=== PATIENT | female | born 1945 | race Caucasian/White ===

== ENCOUNTER → 2018-03-17 09:07 | Outpatient (CLI) | payer MEDICARE, OTHER, SELFPAY ==
--- NOTE | 2018-03-17 | DI.MRI.S_ITS ---
PROCEDURE: MR LUMBAR SPINE WO CON INDICATIONS: LOW BACK PAIN AT MULTIPLE SITES TECHNIQUE: Noncontrast sagittal T1 spin echo and T2 fast echo, sagittal STIR, axial T1 and T2 fast spin echo through the lumbar spine. In cases with scoliosis, additional coronal T2 fast spin echo may be performed. COMPARISON: [facility] [place], CR, XR LUMBAR SPINE WITH OLBIQUES PLUS FLEXION EXTENSION, 03/07/2018, 11:01. FINDINGS: Image quality: Excellent. Alignment and Curvature: There is trace L1-L2 and L2 on L3 retrolisthesis. Convex left curvature of the thoracolumbar spine is noted which is stable compared to prior plain film radiographs. Bone Marrow: Mild reactive endplate changes noted adjacent to the L1-L2, L2-L3 and L4-L5 discs. No acute vertebral body compression fractures. Spinal Cord: Conus medullaris terminates at the L1 level. Visualized cord demonstrates normal signal and size. Paraspinous Soft Tissues: No paravertebral masses. L1-L2: Loss of disc signal and height. Mild diffuse disc bulge. Mild narrowing of the central canal. Mild bilateral neural foraminal narrowing. No neural impingement. L2-L3: Loss of disc signal and height. Mild diffuse disc bulge. Mild bilateral facet hypertrophy. Mild ligamentum flavum hypertrophy. Moderate narrowing of the central canal. Moderate bilateral neural foraminal narrowing. No neural impingement. L3-L4: Loss of disc signal. Moderate diffuse disc bulge. Mild right and moderate left facet hypertrophy. Moderate narrowing of the central canal. Moderate right and tpvkpkqt-[id number]-lrlpjl left neural foraminal narrowing with slight flattening deformity exiting left L3 nerve root. L4-L5: Loss of disc signal. Moderate, diffuse disc bulge. Small central disc protrusion. Moderate facet and moderate ligamentum flavum hypertrophy. Severe central stenosis. Moderate to severe right and severe left neural foraminal narrowing with slight flattening deformity exiting right L4 nerve root and marked flattening deformity exiting left L4 nerve root. L5-S1: Loss of disc signal. Minimal, diffuse disc bulge. Moderate right and mild left facet hypertrophy. No central stenosis. No neural foraminal narrowing. No neural impingement. IMPRESSION: 1. Multilevel degenerative disc disease. 2. Multilevel facet arthropathy. 3. Severe L4-L5 central canal stenosis. Moderate L2-L3 and L3-L4 central canal narrowing. Mild L1-L2 Central canal narrowing. 4. Moderate to severe right and severe left L4-L5 neural foraminal narrowing. Moderate right and [id number]-pb-[id number] left L3-L4 neural foraminal narrowing. Moderate bilateral L2-L3 neural foraminal narrowing. Mild bilateral L1-L2 neural foraminal narrowing. Dictated by: Kiera Gunter MD, PhD on 03/17/2018 at 12:50 Approved by: Kiera Gunter MD, PhD on 03/17/2018 at 12:58
== END ==
PROVIDERS: PCP Registered Nurse; Visit Provider Physical Medicine & Rehabilitation
DX: M54.5 Low back pain (principal); M51.36 Other intervertebral disc degeneration, lumbar region; M47.816 Spondylosis without myelopathy or radiculopathy, lumbar region; M48.061 Spinal stenosis, lumbar region without neurogenic claudication
CPT/HCPCS: 72148

== ENCOUNTER 2018-06-20 10:03 | Inpatient (IN) | payer MEDICARE, OTHER, SELFPAY ==
[2018-06-08 14:01] VITALS: BMI 23.8
[2018-06-20] VITALS (14 sets, daily range): BP systolic 94–137; BP diastolic 41–79; PULSE 61–75; RESP 10–20; TEMP 36.3–36.6; O2SAT 97–100; BMI 23.2
--- NOTE | 2018-06-20 | DI.RAD.S_ITS ---
PROCEDURE: XR LUMBAR SPINE 2-3V INDICATIONS: L4-5 TLIF TECHNIQUE: 2 views of the lumbar spine were acquired. COMPARISON: None. FINDINGS: 2 intraoperative fluoroscopy images demonstrate discectomy and posterior fusion at L5-S1. IMPRESSION: Discectomy and posterior fusion at L5-S1. Dictated by: Jordan Fuentes M.D. on 06/20/2018 at 14:45 Approved by: Jordan Fuentes M.D. on 06/20/2018 at 14:46
--- NOTE | 2018-06-20 11:30 | PM.PREOP ---
Pre-operative Note Interval Note History & Physical reviewed/Exam performed by Physician: Yes Changes to H&P: No
[2018-06-20] MEDS: LACTATED RINGERS 1,000 ML 42 ML IV ×2 (11:40→14:05)
[2018-06-20] MEDS: CEFAZOLIN 2 GM/100 ML FROZ.PIGGY IV ×2 (11:59→20:28)
--- NOTE | 2018-06-20 12:36 | SUR.OPER ---
Prone on spine table, head in foam head support, padded chest and pelvic supports, gel pad at knees, lower legs supported by pillows; nipples, genitalia and toes free of pressure, arms secured on foam padded arm boards at <90 degrees abduction. Tape over blanket at thigh secured to table.
[2018-06-20] MEDS: BUPIVACAINE LIPOSOME 266 MG/20 ML VIAL INJ (13:04)
[2018-06-20] MEDS: BUPIVACAINE 0.25% W/ EPI 50 ML VIAL 30 ML INJ (13:04)
[2018-06-20] MEDS: HYDROMORPHONE 2 MG INJ 0.5 MG IV ×4 (14:20→14:40)
--- NOTE | 2018-06-20 14:36 | PM.OP.1 ---
Operative Date/Time/Diagnoses Date of procedure: 06/20/18 Time of procedure: 11:36 Pre-op diagnosis: 1. L4-5 spinal stenosis 2. Neurogenic claudication Post-op diagnosis: same Procedure & Clinicians Procedure: 1. L4-5 Postero-lateral and posterior interbody fusion 2. L4-5 interbody cage placement. 3. L4-5 decompressive laminectomy with bilateral facetecomies 4. L4-5 Posterior non-segmental instrumentation 5. [employer] of bone marrow from iliac crest 6. Utilization of microsurgical technique and operating microscope Same procedure as scheduled: Yes Indications: Patient has been having chronic back pain and worsening lumbar radiculopathy. Patient failed multiple conservative management with worsening pain weakness and numbness in her lower extremity. Patient has been having difficulty performing activity of daily living. After discussing risks benefits of treatment options, patient elected proceed with surgery. Surgeon: Shital Joy Brand Ambassador: Amina Ibarra Click Yes if Unassisted: No Anesthesia Type: General Operative Notes Closure Type: primary Prosthetic devices, grafts, tissues, transplants, or devices: Globus revolve screws, Rise cage Estimated Blood Loss (mL): 50 Blood products transfused: none Procedure in detail: Patient was seen in the preoperative area. Risks and benefits of the surgery was discussed with the patient. Informed consent was obtained from the patient and placed in the chart. Surgical site was marked. Patient was taken to the operative room. General anesthesia was administered. Prophylactic antibiotic was given to the patient less than 30 min before the incision was made. Patient was placed into a prone position on the Adin table. Patient's back was then prepped and draped in the sterile fashion. Time-out was performed at this time. Using AP and lateral C-arm imaging the interval between L4-5 was identified and marked on patient's back. A 2 inch incision 2 in from midline was made on the right side first. The fascia was incised in line with skin incision. Globus MARS retractors was placed inside the incision and docked onto the L4 lamina. Using microsurgical technique and operating microscope, a L4 laminectomy and L4-5 facetectomy was performed using a Kerrison rongeur. patient was found have severe central stenosis as well as bilateral neural foramen stenosis. Total facetectomy was performed in order to fully decompress patient's neurologic structures which rendered the L4-5 level unstable and warranted a fusion surgery. The disc space at L4-5 was identified. And a total diskectomy was performed at L4-5 level. The endplates were decorticated using a rasp and shaver. The total diskectomy and decortication was performed at L4-5 level in order to to accomplish a L4-5 fusion. The local bone from the laminectomy and facetectomy was saved for local bone grafting. After the total diskectomy and decortication was completed, Bio4 bone graft material was combined with local bone that was harvested earlier. At this time, a separate skin is incision was made over the iliac crest. A Jamshidi needle was inserted into the iliac crest through a separate skin incision. 5 cc of bone marrow aspiration was obtained through the separate skin incision using a Jamshidi needle from the iliac crest. The bone marrow aspiration was combined with local bone and the Bio4 bone grafting material. The bone grafting material was placed into the L4-5 interbody space along with a expandable cage. The cage was expanded to its maximum height using the torque limiting screwdriver. At this time a mirror image incision was made on the left side. The fascia was incised in line with the skin incision. Globus MARS retractor was inserted and docked onto the L4-5 posterolateral gutter. Using the power drill, posterior-lateral decortication was performed at L4-5 level until bleeding cortical bone was identified. The remaining bone grafting material was placed into the L4-5 posterior lateral gutter he order to accomplish posterolateral fusion at the L4-5 level. Using the double C-arm technique, pedicle screws were placed into the L4-5 pedicles bilaterally. This was done by placing the Jamshidi needle into the pedicles, then placing the guidewires over the Jamshidi needle, and finally placing the cannulated screws over the guidewires bilaterally. After the pedicle screws were placed, 2 titanium rods was locked into the heads of the pedicle screws using locking caps and torque limiting screwdriver. After all the hardware was placed, and confirmed with AP and lateral C-arm imaging, the wound was then irrigated with sterile normal saline and packed with Ray-Donald gauze for 3 min to accomplish hemostasis. After the gauze was removed the deep fascia was closed with #1 Vicryl suture. The subcutaneous layer was closed with 2-0 Vicryl. The skin was closed with skin elinor. Patient tolerated the procedure well. There were no complications. Complications: none Condition: stable Disposition: PACU Plan for aftercare: Admit to inpatient hospital
[2018-06-20] MEDS: hydrOXYzine 50 MG/ML INJ IM (14:45)
[2018-06-20] MEDS: SODIUM CHLORIDE 0.9% 1,000 ML 100 ML IV (16:14)
--- NOTE | 2018-06-20 16:51 | PC.NURSE ---
Fina shift note: Patient admitted to room 228 from PACU at 1540 S/P scheduled TLIF by Dr. CULP. Awake, alert, and oriented. VSS. No c/o pain on arrival or nausea. Al at bedside providing supportive care. Oriented to room, environment, and plan of care.
[2018-06-20] MEDS: HYDROMORPHONE 1 MG INJ 0.5 MG IV (17:47)
[2018-06-20] MEDS: DOCUSATE 100 MG CAPSULE PO (20:27)
[2018-06-20] MEDS: LOVASTATIN 20 MG TABLET 40 MG PO (20:27)
[2018-06-20] MEDS: SENNOSIDES 8.6 MG TABLET 17.2 MG PO (20:28)
[2018-06-20] MEDS: OXYCODONE IR 5 MG TABLET 10 MG PO (20:30)
[2018-06-20] MEDS: hydrOXYzine pamoate 25 MG CAPSULE PO (20:35)
[2018-06-21 00:10] VITALS: BP 121/68; PULSE 78; RESP 16; TEMP 36.6; O2SAT 99
[2018-06-21] MEDS: OXYCODONE IR 5 MG TABLET 10 MG PO ×4 (00:33→12:49)
[2018-06-21] MEDS: CEFAZOLIN 2 GM/100 ML FROZ.PIGGY IV (03:53)
[2018-06-21] MEDS: SODIUM CHLORIDE 0.9% 1,000 ML 100 ML IV (03:53)
[2018-06-21 04:10] VITALS: BP 100/57; PULSE 64; RESP 15; TEMP 36.5; O2SAT 99
[2018-06-21 05:44] LABS: Hematocrit 36.4 % (36-46); Hemoglobin 12.8 g/dL (12.0-16.0)
[2018-06-21 08:00] VITALS: BP 104/63; PULSE 73; RESP 18; TEMP 37.1; O2SAT 95
--- NOTE | 2018-06-21 08:56 | CM.DANOTE ---
DCP: Case received, EMR reviewed and met with patient. Introduced self and role. DCP template completed with information currently available. Patient is a 72 year old female who admitted yesterday morning to the care of the surgical team. PCP: Dr. Orona. Payer: confirmed: Medicare/[employer]. Patient came to hospital for L4-5 Laminectomy. Patient has had history of chronic bilateral low back pain. Met with her in her room. She was up in her chair having breakfast. Alert and oriented. She lives in [place] with her , Al. She will be working with physical therapy today. She has been independent at home. P: DCP to continue to follow. Anticipate her going home when medically stable, as well as cleared by physical therapy. Leilani Hutchinson RN/Environmental Communications Specialist
[2018-06-21] MEDS: CHOLECALCIFEROL (VITAMIN D3) 1,000 UNIT TABLET 2000 UNIT PO (09:12)
[2018-06-21] MEDS: DOCUSATE 100 MG CAPSULE PO (09:12)
--- NOTE | 2018-06-21 09:29 | PM.DS.1 ---
History of Present Illness Date Patient Seen: 06/21/18 Time Patient Seen: 09:30 Chief complaint: [id number] Narrative: Hospital day 2 postop day 1 following L4-5 TLIF, cage, posterior screw fixation. patient has remained stable postoperatively. She states her preoperative leg symptoms have resolved. Having primarily low back pain. has been taking oxycodone for pain. patient is interested in going home today with her to take care of her. She has not had physical therapy yet. Discharge Providers Date of admission: 06/20/18 10:03 Discharge Date: 06/21/18 Primary care physician: TEE Dean Consults: 06/20/18 15:35 Consult to Occupational Therapy Evaluate & Treat Comment: Physician Instructions: Evaluate and treat Consult to Physical Therapy Evaluate & Treat Comment: Physician Instructions: Evaluate and Treat Discharge provider: Lan Quintana PA-C Summary Discharge Diagnosis: Status post L4-5 TLIF, cage, posterior screw fixation Hospital Course: Patient brought to hospital on 06/20/2018 for above noted surgery. She remained stable postoperatively. She progressed with physical therapy. Ready to go home on postop day 1. Status at Discharge Cognitive/behavioral status at discharge: oriented Functional status at discharge: uses cane/walker Overall status at discharge: patient is progressing back to baseline Time Spent with Patient Less than 30 minutes Exam Vital Signs (past 8 hours): - 06/21/18 04:10 06/21/18 08:00 Temperature 97.7 F 98.8 F Pulse Rate 64 73 Respiratory Rate 15 18 Blood Pressure 100/57 L 104/63 Pulse Oximetry 99 95 Oxygen Delivery Method Nasal Cannula Oxygen Flow Rate 2 Narrative Exam Narrative: Alert, oriented no acute distress sitting in chair. Back. Dressing is dry without drainage or inflammation. Legs. No calf pain or swelling. Pulses symmetrical. Good sensation to touch to lower legs. Good strength on foot dorsiflexion plantar flexion. she is able to full extension from sitting position bilateral. Objective Labs Result Diagrams: 06/21/18 05:08 Labs: Laboratory Results - last 24 hr 06/21/18 05:08 Hgb 12.8 Hct 36.4 Discharge Plan Discharge Plan Patient Disposition: Home Discharge comment: Discharge to home today pending clearance by PT. Patient to avoid excessive bending or twisting of lumbar spine. no lifting or carrying more than 5-10 lb. No sitting for more than an hour to time. Discharge Med Rec/Prescriptions Prescriptions: New oxycodone 5 mg Tablet 10 mg PO Q3HR PRN (Reason: Pain, Severe (7-10)) Qty: 30 RF: 0 hydroxyzine pamoate 25 mg Capsule 25 mg PO Q4HR PRN (Reason: Nausea And Vomiting) Qty: 20 RF: 0 Continued cyclobenzaprine 10 mg Tablet 10 mg PO DAILY PRN (Reason: Muscle Spasm) RF: 0 lovastatin 40 mg Tablet 40 mg PO QPM RF: 0 alprazolam 0.5 mg Tablet 0.5 - 2 mg PO BEDTIME PRN (Reason: Insomnia) RF: 0 famotidine 20 mg Tablet 20 mg PO DAILY PRN (Reason: Heartburn) RF: 0 estradiol 0.01 % (0.1 mg/gram) Cream 1 g VAGINAL 2XW RF: 0 omeprazole 20 mg Tablet,Delayed Release (Dr/Ec) 20 mg PO DAILY PRN (Reason: gerd) RF: 0 cholecalciferol (vitamin D3) [Vitamin D3] 2,000 unit Capsule 2,000 unit PO DAILY RF: 0 acetaminophen [Tylenol Arthritis Pain] 650 mg Tablet Extended Release 1,300 mg PO BID RF: 0 Discontinued meloxicam 15 mg Tablet 15 mg PO DAILY PRN (Reason: pain) RF: 0 Follow up/Referrals: Domonique Orona ARNP [Primary Care Provider] - Provider Discharge Instructions Diet: Diet as Tolerated Activity: Ambulate as tolerated. Use walker as needed. avoid sitting for more than 1 hour to time. no excessive bending or twisting of lumbar spine. no lifting or carrying more than 5-10 lb. Cold/Heat Therapy: Cold pack to lumbar spine as needed. Skin/Wound/Dressing Care Report to your healthcare provider any signs of infection, such as:: chills, fever, night sweats, increased pain, unusual drainage and unusual redness Dressing: Keep CovRsite dressing in place until postop visit. Visit Report/Discharge Packet Instructions: DI for Transforaminal Lumbar Interbody Fusion Discharge Data Primary Care Provider: Domonique Orona Attending Provider: Shital Joy Admit Date/Time: 06/20/18 10:03
--- NOTE | 2018-06-21 11:32 | PC.NURSE ---
Addendum entered by Sudha Ko R.N. 06/21/18 14:02: DC - after lunch, given 10mg po oxycodone and 25mg po vistaril for discomfort back 6 on scale 0/10, saline lock dc'd, OT had dressed, dc instructions reviewed, belongings gathered, including glasses, cell phone, tablet, clothing, tsf to wc and escorted to spouse's car. Original Note: Addendum entered by Sudha Ko R.N. 06/21/18 12:00: after working with occup therapy, dsg removed, parallel stapled incisions w/o redness or drainage, replaced with coversite dsg. Original Note: Addendum entered by Sudha Ko R.N. 06/21/18 11:55: Original Note: AM NOTE - pt up to chair x 1 person w/fww for breakfast, states pain back 3-4 on scale 0/10, no nausea, does have hx sciatica and continues with some nerve discomfort lle, states has improved post op, given 10mg oxycodone for phys therapy, ivf saline lock, plan for pt to dc later after lunch if clarita phys therapy, per pt did well, pain 2 on scale 0/10 after mobilization, ret to bed to rest, spouse arrived and given scripts for oxycodone and hydroxyzine to fill, pt states would like to go home after lunch.
--- NOTE | 2018-06-21 12:12 | OT.IP.EVAL ---
Current Diagnoses Other spondylosis with radiculopathy, lumbar region (06/20/18) Spinal stenosis, lumbar region with neurogenic claudication (06/20/18) Surgery Performed Operation Date: 06/20/18 12:15 Actual Procedures p L4-5 TLIF - Shital Joy MD Past Medical History (Last Reviewed 06/20/18 @ 15:09 by Charlette Fox, RN) Arthritis (Acute) Depression (Acute) GERD (gastroesophageal reflux disease) (Acute) Hyperlipidemia (Acute) Pre-diabetes (Acute) Sciatica (Acute) Skin abnormality (Acute) Tingling (Acute) UTI (urinary tract infection) (Acute) Vitamin D deficiency (Acute) Surgical History (Last Reviewed 06/20/18 @ 15:09 by Charlette Fox RN) History of colonoscopy (Acute 09/15/07) Hx of bilateral cataract extraction (Acute ~06/2017) Occupational Therapy Inpatient Evaluation/Re-Eval M1 PT/OT-IP Prior Functional Status Start: 06/21/18 16:50 Freq: NEEDED Status: Active Protocol: Document 06/21/18 12:12 PJVanesa (Rec: 06/21/18 17:02 PJ [id number]) Medical Review Prior Functional Status Medical History Reviewed Yes Diet/Fluid Consistency Regular Communication WNL Mobility and Gait Pt reports she ambulated without use of AD. Activities of Daily Living and IADL's Independent without use of AD. Prior Functional Level (Other details) Pt reports she was independent with all daily and recreational activities, no use of AD. Pt is a retired physician. Social History Household Members spouse Living Arrangements House Number of Floors (Floors) Two Floors Number of Stairs To Enter/Railing? Split level home with 1 TANNER home with no rail. 3 steps to 2nd floor of home with R handrail. Home Environment High Toilet Tub/Shower Home Equipment Front Wheel Walker Employment Status Retired Additional Social History Comment Pt's will be available to assist her at home. M2 OT-IP Current Condition Start: 06/21/18 16:50 Freq: Status: Active Protocol: Document 06/21/18 12:12 PJVanesa (Rec: 06/21/18 17:02 JACKY [id number]) Occupational Therapy Current Condition Current Condition Evaluation Date 06/21/18 Treatment Diagnosis decreased self care, functional mobility s/p L4-5 lami,fusion Diagnosis Onset Date 06/20/18 Post Operative Precautions Lumbar Precautions Log Roll No Twisting Limit Bending Lifting Restriction of 10 lbs Gait Belt above Incisional Area M3 OT- IP Subjective and Pain Start: 06/21/18 16:50 Freq: Status: Active Protocol: Document 06/21/18 12:12 PJM (Rec: 06/21/18 17:02 PJ [id number]) OT- Subjective Occupational Therapy Visit Type Type Initial Evaluation Visit Start Time 11:22 Visit Stop Time 12:12 Total Visit Minutes 50 Notes Pt's here for education this session. Occupational Therapy Visit Comments Patient/Caregiver Goals to go home today, be able to resume [email or web address] arts classes and take walks OT Pain Assessment Pain When Pain Assessed After Treatment Pain Present Pain Present Pain Reported Location Lower Back Intensity 4 Scale Used Numeric (1 - 10) Description Aching Acute Pain Behaviors Guarding Management Techniques Distraction Re-positioning Timing of Activity with Medications M4 OT- IP ADL's Start: 06/21/18 16:50 Freq: Status: Active Protocol: Document 06/21/18 12:12 PJM (Rec: 06/21/18 17:02 [facility] [id number]) OT CYY-Ilty-Onjcjot General Evaluation Self-Feeding Ability Independent OT ADL-Grooming General Evaluation Grooming Ability Independent Comments OT Grooming Comments provided education re: body mechanics OT ADL-Oral Care General Eval Oral Care Ability Independent Comments Oral Care Comments standing at sink 4 min total OT ADL-Dressing General Eval Upper Body Dressing Ability Independent Lower Body Dressing Ability Minimal Assistance Areas Needing Assistance Pull-Over Shirt Underpants/Brief Pants/Shorts Socks Shoes Assistive Devices Dressing Assistive Devices Long Handled Shoe Horn Residential Property Manager Comments OT Dressing Comments Pt declines sock aid. to assist with socks until pt able. Gave catalog and ordering info for pt to obtain global commodity manager. has long shoe horn pt can use. OT ADL-Toileting General Evaluation Toileting Ability Independent Areas Needing Assistance Manage Clothing Perform Perineal Hygiene OT ADL-Bathing Comments OT Bathing Comments provided education re: body mechanics, pt to order long bath sponge from catalog M5 OT- IP IADL's Start: 06/21/18 16:50 Freq: Status: Active Protocol: Document 06/21/18 12:12 PJM (Rec: 06/21/18 17:02 PJ [id number]) OT-Instrumental Activities of Daily Living Deficits IADL Deficits Identified Deficits Home Safety Awareness Awareness of Need for Assistance at Home Good Awareness Ability to Problem Solve Emergency Able to Problem Solve Situations Medication Management Medication Management No Deficits Identified Money Management Money Management No Deficits Identified Meal Preparation Meal Preparation Caregiver Provides Assist Meal Preparation Comments to assist until pt able Day Care Home Mother Day Care Home Mother Caregiver Provides Assist Day Care Home Mother Comments to assist until pt able Driving Driving Caregiver Provides Assist Driving Comments to assist until pt able M6 OT- IP Functional Cognition Start: 06/21/18 16:50 Freq: Status: Active Protocol: Document 06/21/18 12:12 PJ (Rec: 06/21/18 17:02 [facility] [id number]) Cognitive Factors Limiting Selfcare Function Cognitive Ability Level of Alertness Alert Patient Orientation Name Age Birthday Month Date Year Day of Week Place Situation Attention Span Ability Capable of Focused Attention Capable of Sustained Attention Ability to Follow Commands Able to Follow One Step Commands Able to Follow Multi-Step Commands Memory Description No Deficits Noted Safety Awareness No Deficits Noted Problem Solving Ability No deficits Noted Cognitive Comments Cognitive Assessment Comments Pt verbalizes/demonstrates understanding of 3/3 lumbar spine precautions. OT- Vision and Hearing OT- Hearing Assessment OT- Hearing Assessment WFL OT- Vision Assessment Visual Acuity WFL Glasses All The Time M7 OT- IP Mobility and Balance Start: 06/21/18 16:50 Freq: Status: Active Protocol: Document 06/21/18 12:12 PJM (Rec: 06/21/18 17:02 [facility] [id number]) OT- Bed Mobility Assessment Rolling Type of Rolling Roll to Right Level of Assistance Independent Supine to Sit Supine to Sit Assist Independent Scooting Scooting to Edge of Bed Independent OT-Transfer Assessment Sit to and From Stand Sit to and from Stand Independent Transfers Transfer Ability Independent Technique Transfer Destination Car Chair Toilet Transfer Technique Stand Step Pivot Devices Transfer Assistive Devices Front Wheeled Walker Comments Mobility Comments provided education re: technique for car transfers and pt/ verbalize understanding OT- Gait Assessment Gait Gait Assistance Required: Independent Distance (Feet) 30 Assistive Devices Assistive Device Front Wheeled Walker OT- Balance Assessment Sitting Balance and Reactions Static Sitting Balance Ability Good Dynamic Sitting Balance Ability Good Standing Balance and Reactions Static Standing Balance Ability Good Dynamic Standing Balance Ability Good M8 OT- IP Objective Assessments Start: 06/21/18 16:50 Freq: Status: Active Protocol: Document 06/21/18 12:12 PJM (Rec: 06/21/18 17:02 PJ [id number]) OT Gross Range of Motion Upper Extremity Range of Motion Assessment Within Functional Limits OT Strength Upper Extremity Strength Assessment Within Functional Limits OT- Coordination Assessment Comments Coordination Comments BUE WNL OT-Muscle Tone Assessment Muscle Tone WNL Yes OT Sensation Assessment Comments Summary Comments WNL BUE per pt Edema Edema Absent M9 OT- IP Assessment and Plan Start: 06/21/18 16:50 Freq: Status: Active Protocol: Document 06/21/18 12:12 PJM (Rec: 06/21/18 17:02 PJ [id number]) OT Summary Assessment and Plan Potential Rehabilitation Potential Excellent Analytic Complexity at Evaluation Low Summary Progress Towards Goals Safe For Discharge Goals Met Assessment Summary Low complexity OT assessment and all OT education completed with pt/ today re: lumbar spine precautions, optimal chair selection, posture, body mechanics, adapted ADL techniques and bathroom/dressing equipment options/resources. Pt/ verbalize and demonstrate understanding of all education. Pt plans to d/c home today with 24 hr assist from supportive . No further OT services needed. Frequency of Treatment Frequency Of Treatment Discharge Discharge Recommendations OT Discharge Recommendations Home with 24/7 Assist Home Equipment Needs pt to obtain global commodity manager and long bath sponge
[2018-06-21] MEDS: hydrOXYzine pamoate 25 MG CAPSULE PO (12:50)
--- NOTE | 2018-06-21 13:09 | PT.IIE ---
Current Diagnoses Other spondylosis with radiculopathy, lumbar region (06/20/18) Spinal stenosis, lumbar region with neurogenic claudication (06/20/18) Surgery Performed Operation Date: 06/20/18 12:15 Actual Procedures p L4-5 TLIF - Shital Joy MD Surgical History (Last Reviewed 06/20/18 @ 15:09 by Charlette Fox, RN) History of colonoscopy (Acute 09/15/07) Hx of bilateral cataract extraction (Acute ~06/2017) Medical History (Last Reviewed 06/20/18 @ 15:09 by Charlette Fox, NINA) Arthritis (Acute) Depression (Acute) GERD (gastroesophageal reflux disease) (Acute) Hyperlipidemia (Acute) Pre-diabetes (Acute) Sciatica (Acute) Skin abnormality (Acute) Tingling (Acute) UTI (urinary tract infection) (Acute) Vitamin D deficiency (Acute) Physical Therapy Inpatient Evaluation/Re-Eval M1 PT/OT-IP Prior Functional Status Start: 06/20/18 16:53 Freq: NEEDED Status: Active Protocol: Document 06/21/18 11:38 BS (Rec: 06/21/18 12:02 BS [id number]) Medical Review Prior Functional Status Medical History Reviewed Yes Communication Pt able to let all needs known via verbal communication. Mobility and Gait Pt reports she ambulated without use of AD. Activities of Daily Living and IADL's Independent without use of AD. Prior Functional Level (Other details) Pt reports she was independent with all daily and recreational activties, no use of AD. Pt is a retired physician. Social History Household Members spouse Living Arrangements House Number of Floors (Floors) Two Floors Number of Stairs To Enter/Railing? Split level home with 1 TANNER home with no rail. 3 steps to 2nd floor of home with R handrail. Home Environment Tub/Shower Home Equipment Front Wheel Walker Employment Status Retired Additional Social History Comment Pt's will be available to assist her at home. M2 PT-IP Current Condition Start: 06/20/18 16:53 Freq: NEEDED Status: Active Protocol: Document 06/21/18 11:38 BS (Rec: 06/21/18 12:02 BS [id number]) Physical Therapy Current Condition Current Condition Evaluation Date 06/21/18 Treatment Diagnosis L4/5 Fusion Precautions Lumbar Precautions Log Roll No Twisting Limit Bending Lifting Restriction of 10 lbs Weight Bearing Status Weight Bearing Status Full Weight Bearing M3 PT-IP Subjective Start: 06/20/18 16:53 Freq: NEEDED Status: Active Protocol: Document 06/21/18 11:38 BS (Rec: 06/21/18 12:02 BS [id number]) Subjective Physical Therapy Visit Type Type Initial Evaluation Visit Start Time 09:55 Visit Stop Time 10:25 Total Visit Minutes 30 Therapy Pain Assessment Pain When Pain Assessed At Rest Pain Present Pain Present Pain Reported Location Lower Back Intensity 2 M4 PT-IP Mobility and Gait Start: 06/20/18 16:53 Freq: NEEDED Status: Active Protocol: Document 06/21/18 11:38 BS (Rec: 06/21/18 12:02 BS [id number]) PT-Bed Mobility Assessment Rolling Type of Rolling Log Rolling Level of Assist Standby Assistance Supine to Sit Supine to Sit Standby Assistance Sit to Supine Sit to Supine Standby Assistance Scooting Scooting to Edge of Bed Standby Assistance Scooting Up and Down in Bed Standby Assistance PT-Transfer Assessment Sit to and From Stand Sit to and from Stand Standby Assistance Equipment Transfer Assistive Device Front Wheeled Walker Orthotic/Prosthetic Devices or Brace: No Gait Assessment Gait Gait Assistance Required: Standby Assistance Distance (Feet) 500 Able to Maintain Weight Bearing Status Yes During Gait Assistive Devices Assistive Device Gait Belt Front Wheeled Walker Gait Deviations General Gait Pattern Decreased Stride Length Comments Gait Comments Pt ambulated x500'+ with step through gait pattern and use of front wheeled walker with slightly decreased step length bilaterally. She denied dizziness or increased pain with ambulation. Stair Climbing Assessment Evaluation Level of Assist On Stairs Standby Assistance Devices Stair Climbing Assistive Devices Right Railing Technique/Endurance Stair Climbing Direction Ascend and Descend Stair Climbing Technique Step to Step Number of Steps Climbed 4 Query Text: Stair Climbing Set # Repetitions (reps) 3 Comments Stair Climbing Comments Pt instructed to descend with RLE as she reports it sometimes feels like it may buckle. PT-Balance Assessment Sitting Balance and Reactions Static Sitting Balance Ability Normal Dynamic Sitting Balance Ability Good Standing Balance and Reactions Static Standing Balance Ability Normal Dynamic Standing Balance Ability Good M5 PT-IP Objective Assessments Start: 06/20/18 16:53 Freq: NEEDED Status: Active Protocol: Document 06/21/18 11:38 BS (Rec: 06/21/18 12:02 BS [id number]) Orientation Orientation/Cognition Level of Alertness Alert Language Function Ability No Deficits Noted Safety Awareness Understands Safety Issues Memory Description No Deficits Noted M6 PT-IP Treatment Start: 06/20/18 16:53 Freq: NEEDED Status: Active Protocol: Document 06/21/18 11:38 BS (Rec: 06/21/18 12:02 BS [id number]) Physical Therapy Treatment Education Education Provided Precautions Post-Op Packet Safety M7 PT-IP Assessment and Plan Start: 06/20/18 16:53 Freq: NEEDED Status: Active Protocol: Document 06/21/18 11:38 BS (Rec: 06/21/18 12:02 BS [id number]) PT Summary Assessment and Plan Potential Rehabilitation Potential Excellent Status of Condition at Evaluation Stable Summary Impairments Pain Bed Mobility Transfers Activity Tolerance Progress Towards Goals Safe For Discharge Assessment Summary Pt status post L4/5 fusion. Pt demonstrated correct log roll technique, SBA transfers, and ability to ambulate and ascend/descent stairs safely. Pt educated on BLT precautions . She is safe to discharge home with when medically stable. . Frequency of Treatment Frequency Of Treatment Discharge Treatment Plan Physical Therapy Treatment Plan Discharge Planning Discharge Recommendations PT Discharge Recommendations Home with Assistance
== END 2018-06-21 13:15 | disposition home or self-care (01) | DRG 455 ==
PROVIDERS: Admitting Provider Orthopaedic Surgery Orthopaedic Surgery of the Spine; Family Provider Registered Nurse; PCP Registered Nurse; Visit Provider Orthopaedic Surgery Orthopaedic Surgery of the Spine
PROC: 0SG00AJ Fusion of Lumbar Vertebral Joint with Interbody Fusion Device, Posterior Approach, Anterior Column, Open Approach (ICD-10-PCS; principal; 2018-06-20 12:15)
DX: M48.062 Spinal stenosis, lumbar region with neurogenic claudication (principal); M47.816 Spondylosis without myelopathy or radiculopathy, lumbar region; E78.5 Hyperlipidemia, unspecified; Z87.891 Personal history of nicotine dependence
CPT/HCPCS: 36415; 72100; 76000; 85014; 85018; 94760; 97161; 97165; 97530; 97535; C1776; C9290; J0330; J0690; J1100; J1170; J2405; J2704; J3010; J3410

== ENCOUNTER → 2021-02-19 12:56 | Outpatient (CLI) | payer MEDICARE, OTHER, SELFPAY ==
[2018-06-20 16:21] VITALS: BMI 23.2
--- NOTE | 2021-02-19 12:58 | DI.MRI.S_ITS ---
PROCEDURE: MR LUMBAR SPINE WO CON INDICATIONS: Radiculopathy, lumbar region TECHNIQUE: Noncontrast sagittal T1 spin echo and T2 fast echo, sagittal STIR, axial T1 and T2 fast spin echo through the lumbar spine. In cases with scoliosis, additional coronal T2 fast spin echo may be performed. COMPARISON: [facility], , MR LUMBAR SPINE WO CON, 03/17/2018, 9:17. FINDINGS: Image quality: Excellent. Alignment and Curvature: Postsurgical changes related to L4-L5 posterior spinal fixation. Status post L4-L5 right laminotomy. 2 Straightening of the normal lordotic curvature. Grade 1 retrolisthesis of L1 on L2 and L2 on L3. There is levocurvature of the visualized lumbar spine. Bone Marrow: No acute fracture. Multilevel degenerative endplate sclerosis and spurring. Diffuse facet arthropathy. Scattered small Schmorl's nodes incidentally noted. Spinal Cord: Conus medullaris terminates at the L1 level. Visualized cord demonstrates normal signal and size. Paraspinous Soft Tissues: No paravertebral masses. T12-L1: Normal appearance. L1-L2: Minimal canal narrowing. Partial effacement of both lateral recesses with bilaterally symmetric appearance. Moderate right and mild left foraminal stenoses, with no interval change L2-L3: Mild canal narrowing. Partial effacement of both lateral recesses with bilaterally symmetric appearance. Moderate right and severe left foraminal stenoses, although no definite interval change L3-L4: Severe canal stenosis. Partial effacement of both lateral recesses with bilaterally asymmetric appearance, left greater than right. The severe left foraminal stenosis with nerve root compression. Moderate right foraminal narrowing. L4-L5: No canal stenosis. Lateral recesses appear grossly patent. Mild bilateral foraminal stenoses. This is markedly improved on the right since the prior study. Unchanged appearance on the left. L5-S1: No canal narrowing. Lateral recesses appear grossly patent. No definite bilateral foraminal stenosis. No interval change IMPRESSION: Status post L4-L5 posterior spinal fixation and interbody cage graft. Improved appearance of the previous L4-L5 canal stenosis as well as right foraminal narrowing since the prior study. Remaining spinal levels appear grossly unchanged since 03/17/18. Levocurvature. Dictated by: Fahad Amin M.D. on 02/19/2021 at 15:42 Approved by: Fahad Amin M.D. on 02/19/2021 at 15:50
== END ==
PROVIDERS: Family Provider Registered Nurse; PCP Registered Nurse; Referring Provider Physical Medicine & Rehabilitation; Visit Provider Physical Medicine & Rehabilitation
DX: M54.16 Radiculopathy, lumbar region (principal); M48.061 Spinal stenosis, lumbar region without neurogenic claudication; Z98.1 Arthrodesis status
CPT/HCPCS: 72148

== ENCOUNTER → 2021-05-20 10:44 | Outpatient (CLI) | payer MEDICARE, OTHER, SELFPAY ==
[2018-06-20 16:21] VITALS: BMI 23.2
--- NOTE | 2021-05-20 10:45 | DI.RAD.S_ITS ---
PROCEDURE: XR LUMBAR SPINE MIN 4V INDICATIONS: BACK PAIN TECHNIQUE: 5 views of the lumbar spine acquired, including flexion and extension views. COMPARISON: [facility], MR, MR LUMBAR SPINE WO CON, 02/19/2021, 13:20. [facility], CR, XR LUMBAR SPINE 2 OR 3 VIEWS, 09/12/2019, 14:12. [facility], CR, XR LUMBAR SPINE 2-3V, 06/20/2018, 13:51. FINDINGS: Bones: 5 nonrib-bearing vertebrae are present. Mild levo curvature centered at the L3 level. Posterior/interbody fusion again noted at the L4-L5 level with expected positioning of posterior fixation rods and screws as well as the intervertebral disc spacer. There is moderate multilevel disc degeneration and lower lumbar spine facet joint arthropathy. No vertebral body compression fractures. No suspicious bony lesions. Soft tissues: Overlying bowel gas pattern is normal. No suspicious soft tissue calcifications. Vascular calcifications indicate atherosclerosis. IMPRESSION: 1. Stable appearance posterior/interbody fusion L4-L5. 2. Multilevel spondylosis similar prior examination. Dictated by: Bruno De Leon [facility] Interpreted: Alexis Barros MD on 05/20/2021 at 17:06 Transcribed by: DAYLIN on 05/20/2021 at 17:07 Approved by: Alexis Barros M.D. on 05/20/2021 at 17:18
== END ==
PROVIDERS: Family Provider Registered Nurse; PCP Registered Nurse; Referring Provider Registered Nurse; Visit Provider Physical Medicine & Rehabilitation
DX: M47.816 Spondylosis without myelopathy or radiculopathy, lumbar region (principal); M54.9 Dorsalgia, unspecified; M51.26 Other intervertebral disc displacement, lumbar region; Z98.1 Arthrodesis status
CPT/HCPCS: 72110; 99214

== ENCOUNTER → 2021-05-26 13:30 | Outpatient (CLI) | payer MEDICARE, OTHER, SELFPAY ==
[2018-06-20 16:21] VITALS: BMI 23.2
[2021-05-26 16:32] LABS: COVID19 -Nasal RAPID Negative (Negative)
== END ==
PROVIDERS: Family Provider Registered Nurse; PCP Registered Nurse; Visit Provider Physical Medicine & Rehabilitation
DX: Z20.822 Contact with and (suspected) exposure to COVID-19 (principal)
CPT/HCPCS: 87635; C9803

== ENCOUNTER 2021-05-28 13:29 | Outpatient (CLI) | payer MEDICARE, OTHER, SELFPAY ==
[2018-06-20 16:21] VITALS: BMI 23.2
[2021-05-28] VITALS (8 sets, daily range): BP systolic 110–145; BP diastolic 69–78; PULSE 55–77; RESP 12–16; TEMP 36.4; O2SAT 98–100
--- NOTE | 2021-05-28 13:34 | DI.RAD.S_ITS ---
PROCEDURE: PAIN L/S TRANSFORAMINAL INJECT INDICATIONS: Spondylosis COMPARISON: None. FINDINGS: Fluoroscopic spot filming was performed to verify placement of spinal needles at the left L3-L4 neural foramen level(s), as labeled on the films. Appropriate location(s) of the needle tip(s) was confirmed by injection of iodinated contrast. IMPRESSION: Access needle at the left L3-L4 neural foramen for transforaminal epidural steroid injection. Dictated by: Kiera Gunter MD, PhD on 05/28/2021 at 15:23 Approved by: Kiera Gunter MD, PhD on 05/28/2021 at 15:23
[2021-05-28] MEDS: MIDAZOLAM 2 MG/2 ML VIAL IV (14:16)
[2021-05-28] MEDS: BUPIVACAINE 0.25% (PF) VIAL 2 ML INJ (14:20)
[2021-05-28] MEDS: BETAMETHASONE 30 MG/5 ML MDV 6 MG INJ (14:20)
[2021-05-28] MEDS: IOPAMIDOL 15 ML VIAL 3 ML INJ (14:20)
[2021-05-28] MEDS: DEXAMETHASONE 10 MG/ML VIAL 20 MG INJ (14:21)
--- NOTE | 2021-05-28 14:33 | P.PCN_ITS ---
Date/Time/Diagnoses Date of procedure: 05/28/21 Time of procedure: 14:33 Pre-procedure diagnosis: 1. FORAMINAL STENOSIS WITH LE SYMPTOMS Post-procedure diagnosis: same Procedure Notes Procedure: 1. FLUOROSCOPICALLY GUIDED CONTRAST CONTROLLED TRANSFORAMINAL EPIDURAL STEROID INJECTION - LEFT L3/4 TFESI Indications: Zoya Queen is referred by TEE [place] for treatment of Foraminal Stenosis with left LE Symptoms Physician: Rodger Llamas Total Fluoroscopy time (seconds): 13 Total sedation minutes: 13 Complications: none Procedure in detail & Post-procedure care: FINDINGS Foraminal Nerve Root Compression secondary to disc disease and facet hypertrophy DESCRIPTION OF PROCEDURE Following review of allergy and review of potential side effects and complications, including, but not necessarily limited to, infection, allergic reaction, local tissue breakdown, stroke, temporary or permanent nerve injury, paralysis, and possible , the patient indicated that the patient understood and agreed to proceed. An informed consent document was signed by the patient, witnessed by a nurse, and placed in the patient's chart. Additionally, other treatment options including medications, modalities, and physical therapy were reviewed with the patient. After review of previous anaesthesic history and IV conscious sedation the patient was deemed safe to proceed with today?s procedure with IV conscious sedation as ASA class II designation. Safety time-out was performed to confirm patient ID, procedure to be performed and site of procedure. IV sedation was accomplished with a combination of 2mg of Versed and 50mcg of Fentanyl was administered by the RN after DO order, titrated to patient comfort during the course of the procedure while the patient remained responsive to all verbal commands In the prone position following sterile prep and drape of the lumbar region, the left L3/4 posterior neuroforamen was identified fluoroscopically. The skin was anesthetized via a 25-gauge 1.5-inch needle with 1% lidocaine solution. At this point, a 25-gauge 3.5-inch spinal needle was atraumatically introduced and advanced under fluoroscopic guidance through the posterior left L3/4 tasha roforamen to approximately the anterior aspect of the canal. Depth was confirmed on lateral view. Following negative aspiration, injection of approximately 1.5 cc of Isovue 200 under live fluoroscopy in the AP view confirmed excellent flow along the nerve root, into the epidural space without vascular or intrathecal uptake observed Radiological data, including multiple fluoroscopic views of the lumbosacral spine, reveal a spinal needle at the left L3/4 posterior neuroforamen. Subsequent views show flow of contrast material flowing superiorly and inferiorly along the nerve root confirming epidural flow. Subsequently, a test dose of 1.5cc of 1% lidocaine solution was administered and patient was observed for two minutes for signs or symptoms of complications, including abdominal pain, shortness of breath, bilateral upper or lower extremity weakness, nausea and vomiting, prior to steroid injection. At this point, a total of 3cc or 20mg of dexamethasone and 6mg betamethasone was injected without incident. The patient tolerated the procedure well without signs or symptoms of complications prior to transfer to the recovery area continued monitoring without incident. The patient was then transferred to the recovery area where they were observed for an appropriate time after the injection. The patient reported a VAS score of 7 prior to the procedure and a post-procedure VAS of 0. POST OP INSTRUCTIONS The patient was provided a Pain Log to continue to record their response to the target-specific procedure prior to follow-up visit with their referring physician. Additionally, specific post-injection care instructions and a contact number to our office were provided if concerns arise regarding possible complications associated with the procedure are suspected.
== END 2021-05-28 14:50 | disposition home or self-care (01) ==
LOC: RAD 13:32
PROVIDERS: Family Provider Registered Nurse; PCP Registered Nurse; Referring Provider Physical Medicine & Rehabilitation; Visit Provider Physical Medicine & Rehabilitation
DX: M48.061 Spinal stenosis, lumbar region without neurogenic claudication (principal); M51.16 Intervertebral disc disorders with radiculopathy, lumbar region
CPT/HCPCS: 64483; 99152; J0702; J1100; J2250; J3010

== ENCOUNTER → 2023-10-14 13:46 | Outpatient (CLI) | payer MEDICARE, OTHER, SELFPAY ==
[2018-06-20 16:21] VITALS: BMI 23.2
--- NOTE | 2023-10-14 13:50 | DI.MRI.S_ITS ---
PROCEDURE: MR LUMBAR SPINE WO CON INDICATIONS: Radiculopathy, lumbar region TECHNIQUE: Noncontrast sagittal T1 spin echo and T2 fast echo, sagittal STIR, and T2 fast spin echo through the lumbar spine. In cases with scoliosis, additional coronal T2 fast spin echo may be performed. COMPARISON: [facility], CR, XR LUMBAR SPINE MIN 4V, 05/20/2021, 10:43. [facility], MR, MR LUMBAR SPINE WO CON, 03/17/2018, 9:17. [facility], MR, MR LUMBAR SPINE WO CON, 02/19/2021, 13:20. FINDINGS: Image quality: Diagnostic, with note made of motion artifact. There is artifact associated with the metallic hardware. Alignment and Curvature: Mild levoconvex scoliotic curvature is noted. Mild retrolisthesis can be seen at L1-L2 and L2-L3. Bone Marrow: Marrow is of normal overall signal. No acute vertebral body compression fractures. Spinal Cord: Conus medullaris terminates at the L1 level. Visualized cord demonstrates normal signal and size. Paraspinous Soft Tissues: No paravertebral masses. T12-L1: Normal appearance. L1-L2: Moderate loss of disc height is seen. Loss of disc signal is seen. Reactive marrow endplate changes are seen which are hypointense on T1-weighted imaging and hyperintense on T2 weighted imaging, which is most consistent with edema (Modic type I changes). Moderate disc bulge is seen, which is eccentric to the right. There is a superimposed central disc protrusion. Mild facet joint hypertrophy is seen. There is moderate to severe right-sided and at least moderate left-sided neural foraminal narrowing. Mild central canal narrowing is seen. These imaging findings have progressed compared to the prior study. L2-L3: Moderate loss of disc height is seen. Loss of disc signal is seen. Reactive marrow endplate changes are seen which are hypointense on T1-weighted imaging and hyperintense on T2 weighted imaging, which is most consistent with edema (Modic type I changes). Moderate disc bulge is seen. There is a central/right disc protrusion seen, as on series 6, image 15 and on series 2, image 12. Mild facet joint hypertrophy is seen. There is moderate right-sided and at least moderate left-sided neural foraminal narrowing. There is a degree of compression seen upon the exiting left L2 nerve root. At least moderate central canal narrowing is seen. These imaging findings have progressed compared to the prior study. L3-L4: The disc height is well-preserved. Loss of disc signal is seen at this level. Moderate disc bulge is seen. There is a mild central disc protrusion. Moderate facet joint hypertrophy is seen. Moderate bilateral neural foraminal narrowing is seen. Moderate central canal narrowing is seen. When comparison is made with the prior images, these findings are similar. L4-L5: Postoperative changes are seen at this level, with bilateral pedicle screws, vertical fixation rods, and a disc spacer. [id number] disc bulge is seen, which is eccentric to the right. Mild to moderate facet hypertrophy is seen. There is mild right-sided and moderate left-sided neural foraminal narrowing. Minimal central canal narrowing is seen. Stable from the prior study. L5-S1: The disc height and disk signal are relatively well-preserved. Mild generalized disc bulge is seen. There is at least moderate facet hypertrophy seen, right worse than left. There is moderate left-sided and mild right-sided neural foraminal narrowing. Mild central canal narrowing is seen. These imaging findings have progressed compared to the prior study. IMPRESSION: Multiple levels of lumbar spine degenerative change can be seen, which are progressed at a few levels compared to 202. Mild levoconvex lumbar scoliotic curvature is seen. Postoperative change at L4-L5. Dictated by: Joseph Benjamin M.D. on 10/14/2023 at 15:58 Approved by: Joseph Benjamin M.D. on 10/14/2023 at 16:04
== END ==
PROVIDERS: Family Provider Registered Nurse; PCP Registered Nurse; Referring Provider Physical Medicine & Rehabilitation; Visit Provider Physical Medicine & Rehabilitation
DX: M47.26 Other spondylosis with radiculopathy, lumbar region (principal); M47.27 Other spondylosis with radiculopathy, lumbosacral region; M41.9 Scoliosis, unspecified
CPT/HCPCS: 72148